=== PATIENT | male | born 1995 | race Caucasian/White ===

== ENCOUNTER 2017-06-05 21:12 | Emergency (ER) | payer SELFPAY ==
[~2017-06-05] VITALS: Ht 170.2 cm; Wt 91.0 kg
[2017-06-06] MEDS ORDERED: IBUPROFEN 600MG TABLET PO ONE (03:00)
[2017-06-06] MEDS ORDERED: IBUPROFEN 600MG TABLET PO NR (03:15)
[2017-06-06 04:43] VITALS: BP 109/81
== END 2017-06-06 05:23 | disposition home or self-care (01) ==
LOC: ER 21:25
DX: S20.219A Contusion of unspecified front wall of thorax, initial encounter (principal); V49.88XA Car occupant (driver) (passenger) injured in other specified transport accidents, initial encounter; Y93.89 Activity, other specified; Y92.89 Other specified places as the place of occurrence of the external cause; Y99.8 Other external cause status
CPT/HCPCS: 71010; 99283; Z7610